=== PATIENT | male | born 1960 | race Caucasian/White ===

== ENCOUNTER → 2020-08-13 | Outpatient (CLI) | payer BC ==
[~2020-08-13] MED LIST: ALBU8.5H8 INH; BUDE0.25 NAS; FLUT1AER INH; OMEP-110 PO; PRED10TA PO
== END | disposition home or self-care (01) ==
LOC: STAR 08:23
PROVIDERS: ATTEND Otolaryngology
DX: Z20.822 Contact with and (suspected) exposure to COVID-19 (principal); J32.4 Chronic pansinusitis
CPT/HCPCS: 87635

== ENCOUNTER 2020-08-19 08:17 | Day surgery (SDC) | payer BC ==
[~2020-08-19] VITALS: Ht 167.6 cm; Wt 80.0 kg
[~2020-08-19 08:17] MED LIST changes: +BACITRACIN 50,000 UNIT ONE; +BACITRACIN OINT 500U/GM, 15 GM ONE; +EPINEPHRINE 1 MG/ML, 1ML ONE; +EPINEPHRINE TOPICAL SOLN 1 MG/ML, 30ML ONE; +FLUORESCEIN SODIUM 500 MG/5 ML ONE; +LIDOCAINE/PF 1%, 30ML ONE; +OXYMETAZOLINE NASAL SPRAY 0.05%,30ML ONE
[2020-08-19] MEDS ORDERED: CHLORHEXIDINE 15 ML UDC MM STA (08:41)
[2020-08-19 08:59] VITALS: BP 155/89
[2020-08-19] MEDS ORDERED: LACTATED RINGERS 1,000 ML IV SCH (09:00)
[2020-08-19] MEDS ORDERED: PROPOFOL 10 MG/ML, 20ML ONE (11:34)
[2020-08-19] MEDS ORDERED: FENTANYL PF 100 MCG/2ML ONE ×2 (11:34→12:39)
[2020-08-19] MEDS ORDERED: LIDOCAINE-MPF 2% ,5ML ONE ×2 (11:34→14:04)
[2020-08-19] MEDS ORDERED: SUCCINYLCHOLINE 20 MG/ML, 10ML ONE (11:35)
[2020-08-19] MEDS ORDERED: EPHEDRINE 50 MG/ML, 1ML ONE (11:54)
[2020-08-19] MEDS ORDERED: DEXAMETHASONE 4 MG/ML, 1ML ONE ×3 (12:05)
[2020-08-19] MEDS ORDERED: KETOROLAC 30 MG/1 ML ONE (12:07)
[2020-08-19] MEDS ORDERED: GLYCOPYRROLATE 0.2MG/1ML, 5ML ONE (12:15)
[2020-08-19] MEDS ORDERED: ALBUTEROL SULFATE 2.5 MG/3 ML NPPB PRN (12:30)
[2020-08-19] MEDS ORDERED: LABETALOL 5MG/ML, 20ML IV PRN (12:30)
[2020-08-19] MEDS ORDERED: ONDANSETRON 2MG/ML, 2ML IVPush PRN (12:30)
[2020-08-19] MEDS ORDERED: ACETAMINOPHEN 325 MG TABLET PO PRN (12:30)
[2020-08-19] MEDS ORDERED: FENTANYL PF 100 MCG/2ML IV PRN (12:30)
[2020-08-19] MEDS ORDERED: OXYcodone 5 MG/5 ML ORAL.SOL UDC PO PRN (12:30)
== END 2020-08-19 16:10 | disposition home or self-care (01) ==
LOC: OUT 08:17
PROVIDERS: ATTEND Otolaryngology
DX: J32.4 Chronic pansinusitis (principal); J33.0 Polyp of nasal cavity; J34.2 Deviated nasal septum; J45.909 Unspecified asthma, uncomplicated; G47.33 Obstructive sleep apnea (adult) (pediatric); Z79.899 Other long term (current) drug therapy; Z98.890 Other specified postprocedural states; Z82.5 Family history of asthma and other chronic lower respiratory diseases; Z82.49 Family history of ischemic heart disease and other diseases of the circulatory system; Z82.3 Family history of stroke
CPT/HCPCS: 30520; 31259; 31267; 31276; 88304; 88311; J0171; J0330; J1100; J1885; J2704; J3010; J7120

== ENCOUNTER 2020-08-26 09:17 | Day surgery (SDC) | payer BC ==
[~2020-08-26] VITALS: Ht 167.6 cm; Wt 81.1 kg
[~2020-08-26 09:17] MED LIST changes: -BACITRACIN 50,000 UNIT ONE; -BACITRACIN OINT 500U/GM, 15 GM ONE; -EPINEPHRINE 1 MG/ML, 1ML ONE; -EPINEPHRINE TOPICAL SOLN 1 MG/ML, 30ML ONE; -FLUORESCEIN SODIUM 500 MG/5 ML ONE; -LIDOCAINE/PF 1%, 30ML ONE; -OXYMETAZOLINE NASAL SPRAY 0.05%,30ML ONE
[2020-08-26 09:42] VITALS: BP 142/88
[2020-08-26] MEDS ORDERED: OXYMETAZOLINE NASAL SPRAY 0.05%, 15ML NAS ONE (10:57)
[2020-08-26] MEDS ORDERED: OXYMETAZOLINE NASAL SPRAY 0.05%,30ML ONE (11:22)
== END 2020-08-26 11:23 | disposition home or self-care (01) ==
LOC: OUT 09:17
PROVIDERS: ATTEND Otolaryngology
DX: J32.4 Chronic pansinusitis (principal); J33.8 Other polyp of sinus; Z20.822 Contact with and (suspected) exposure to COVID-19
CPT/HCPCS: 87635